=== PATIENT | female | born 1995 ===

== ENCOUNTER 2018-06-30 20:35 | Emergency (ER) | payer OTHER ==
[2018-06-30 21:17] VITALS: RESP 20; O2SAT 98
[2018-06-30] MEDS ORDERED: Sodium Chloride 0.9% 1,000 ML IV ONE (21:25)
--- NOTE | 2018-06-30 21:25 | C.PDOC ---
History Of Present Illness 23 y/o female presents to the ED complaining of nausea, vomiting and abdominal pain for the past 2-3 days. The patient reports she has a PMHx of ovarian cysts. She states her LMP was three months ago. The patient denies any fever or chills. Time Seen by Provider: 06/30/18 21:25 Chief Complaint (Nursing): Abdominal Pain History Per: Patient History/Exam Limitations: no limitations Onset/Duration Of Symptoms: Days Current Symptoms Are (Timing): Still Present Location Of Pain/Discomfort: LLQ Quality Of Discomfort: "Pain" Associated Symptoms: Nausea, Vomiting. denies: Fever, Chills Recent travel outside of the [place]: No Last Menstral Period: 3 months ago Past Medical History Reviewed: Historical Data, Nursing Documentation, Vital Signs Vital Signs: Last Vital Signs Temp 99.6 F 06/30/18 21:10 Pulse 85 06/30/18 21:10 Resp 20 06/30/18 21:10 BP 124/78 06/30/18 21:10 Pulse Ox 98 06/30/18 21:10 - Medical History Other PMH: heart murmur Surgical History: No Surg Hx Family History: States: Unknown Family Hx - Social History Hx Alcohol Use: Yes Hx Substance Use: No Review Of Systems Constitutional: Negative for: Fever, Chills Gastrointestinal: Positive for: Nausea, Vomiting, Abdominal Pain. Negative for: Diarrhea Genitourinary: Negative for: Dysuria, Vaginal Bleeding Physical Exam - Physical Exam Appears: Non-toxic, No Acute Distress Skin: Warm, Dry Head: Normacephalic Eye(s): bilateral: Normal Inspection Oral Mucosa: Moist Neck: Trachea Midline, Supple Chest: Symmetrical Cardiovascular: Rhythm Regular Respiratory: No Rales, No Rhonchi, No Wheezing Gastrointestinal/Abdominal: Soft, Tenderness (mild LLQ tenderness), No Distention, No Guarding, No Rebound Extremity: Bilateral: Normal Color And Temperature Pulses: Left Dorsalis Pedis: Normal, Right Dorsalis Pedis: Normal Neurological/Psych: Oriented x3 Gait: Steady ED Course And Treatment - Laboratory Results Result Diagrams: 06/30/18 21:47 06/30/18 21:47 O2 Sat by Pulse Oximetry: 98 (RA) Pulse Ox Interpretation: Normal Progress Note: Ordered: UA, HCG, CMP, Lipase, CBC, PTT, PT. Medication given in ED: IV Fluids and Zofran Inj Medical Decision Making Medical Decision Making: Upon provider reevaluation patient is feeling better, is medically stable, and requires no further treatment in the ED at this time. Patient will be discharged home with Rx for zofran . Counseling was provided and all questions were answered regarding diagnosis and need for follow up with dr willoughby. There is agreement to discharge plan. Return if symptoms persist or worsen. Disposition Counseled Patient/Family Regarding: Studies Performed, Diagnosis, Need For Followup, Rx Given - Disposition Referrals: Jethro Willoughby MD [Medical Doctor] - Disposition: HOME/ ROUTINE Disposition Time: 21:25 Condition: FAIR Additional Instructions: Please return if symptoms recur Prescriptions: Ondansetron ODT [Zofran ODT] 1 odt PO BID PRN #6 odt PRN Reason: Nausea/Vomiting Instructions: Acute Abdomen (Belly Pain), Adult (DC), Nausea and Vomiting, Adult (DC) Forms: [employer] (Greek) - Clinical Impression Clinical Impression: Abdominal pain, Nausea - PA / REGULATORY LAW SPECIALIST / Resident Statement MD/DO has reviewed & agrees with the documentation as recorded. - Scribe Statement The provider has reviewed the documentation as recorded by the Scribe (Urszula Case) Provider Attestation: All medical record entries made by the Scribe were at my direction and per sonally dictated by me. I have reviewed the chart and agree that the record accurately reflects my personal performance of the history, physical exam, medical decision making, and the department course for this patient. I have also personally directed, reviewed, and agree with the discharge instructions and disposition.
[2018-06-30 21:51] LABS: BASO # 0.1 K/uL (0.0-0.2); BASO % 0.7 % (0.0-2.0); LYMPH # 1.1 K/uL (1.0-4.3); LYMPH % 12.2 % (20.0-40.0); MEAN CELL VOLUME 85.6 fL (81.0-99.0); MEAN CORPUSCULAR HEMOGLOBIN 28.6 pg (27.0-31.0); MEAN CORPUSCULAR HGB CONC 33.4 g/dL (33.0-37.0); MEAN PLATELET VOLUME 6.4 fL (7.2-11.7); MONO # 0.4 K/uL (0.0-0.8); MONO % 4.1 % (0.0-10.0); NEUT # 7.6 K/uL (1.8-7.0); NRBC % 0.2 % (0.0-2.0); RBC 4.56 Mil/uL (3.80-5.20); RED CELL DISTRIBUTION WIDTH 19.4 % (11.5-14.5); WHITE BLOOD COUNT 9.1 K/uL (4.8-10.8)
[2018-06-30 21:52] LABS: SQUAMOUS EPITHIAL 16 /hpf (0-5); URINE BILIRUBIN NEGATIVE (NEGATIVE); URINE BLOOD NEGATIVE (NEGATIVE); URINE CLARITY Hazy (Clear); URINE COLOR Yellow (YELLOW); URINE GLUCOSE (UA) NORMAL (Normal); URINE LEUKOCYTE ESTERASE NEG Leu/uL (Negative); URINE PROTEIN 1+ mg/dL (NEGATIVE); URINE UROBILINOGEN NORMAL mg/dL (0.2-1.0)
[2018-06-30 21:54] LABS: HCG,QUALITATIVE URINE NEGATIVE (NEGATIVE)
[2018-06-30 22:01] LABS: INR 1.2; PROTHROMBIN TIME 12.9 SECONDS (9.7-12.2)
[2018-06-30 22:05] LABS: ALB/GLOB RATIO 1.3 (1.0-2.1); ALBUMIN 4.5 g/dL (3.5-5.0); ALT/SGPT 35 U/L (9-52); AST/SGOT 32 U/L (14-36); BLOOD UREA NITROGEN 8 mg/dL (7-17); CALCIUM 9.6 mg/dl (8.6-10.4); GFR NON-AFRICAN AMERICAN > 60; LIPASE 39 U/L (23-300)
[2018-07-01 02:41] VITALS: BP 120/78; PULSE 81; TEMP 97.6
== END 2018-07-01 02:41 | disposition home or self-care (01) ==
LOC: C.ER 20:35
DX: R10.32 Left lower quadrant pain (principal); R11.0 Nausea
CPT/HCPCS: 80053; 81001; 83690; 84703; 85025; 85610; 85730; 96361; 96374; 99285; J2405; J7030

== ENCOUNTER 2018-10-25 14:02 | Emergency (ER) | payer OTHER ==
[2018-10-25 14:18] VITALS: BMI 33.3
[2018-10-25] MEDS ORDERED: Sodium Chloride 0.9% 1,000 ML IV ONE (15:25)
[2018-10-25 15:29] LABS: SQUAMOUS EPITHIAL 1 /hpf (0-5); URINE BILIRUBIN NEGATIVE (NEGATIVE); URINE BLOOD NEGATIVE (NEGATIVE); URINE CLARITY Clear (Clear); URINE COLOR Yellow (YELLOW); URINE GLUCOSE (UA) NORMAL (Normal); URINE LEUKOCYTE ESTERASE NEG Leu/uL (Negative); URINE PROTEIN NEGATIVE (NEGATIVE); URINE UROBILINOGEN NORMAL mg/dL (0.2-1.0)
[2018-10-25 15:34] LABS: HCG,QUALITATIVE URINE NEGATIVE (NEGATIVE)
[2018-10-25] MEDS ORDERED: Sodium Chloride 0.9% 1,000 ML ONE (15:43)
[2018-10-25 16:11] LABS: BASO % 0.6 % (0.0-2.0); EOS # 0.2 K/uL (0.0-0.7); EOS % 2.2 % (0.0-4.0); HEMOGLOBIN 13.4 g/dL (11.0-16.0); LYMPH # 2.6 K/uL (1.0-4.3); LYMPH % 37.4 % (20.0-40.0); MEAN CELL VOLUME 92.6 fL (81.0-99.0); MEAN CORPUSCULAR HEMOGLOBIN 29.7 pg (27.0-31.0); MEAN CORPUSCULAR HGB CONC 32.1 g/dL (33.0-37.0); MEAN PLATELET VOLUME 7.1 fL (7.2-11.7); MONO # 0.4 K/uL (0.0-0.8); NEUT # 3.8 K/uL (1.8-7.0); NEUT % 53.8 % (50.0-75.0); RBC 4.51 Mil/uL (3.80-5.20); RED CELL DISTRIBUTION WIDTH 14.1 % (11.5-14.5); WHITE BLOOD COUNT 7.1 K/uL (4.8-10.8)
--- NOTE | 2018-10-25 16:20 | C.PDOC ---
History Of Present Illness 23 year old female presents to ED with complaint of total lower abdominal pain for the past 2-3 weeks. Patient admits to nausea, vomiting, fatigue, and headache. Patient has a past history of PCOS for the past few years. She had her ASD repaired at . Patient states that her last menstrual period was from October 07- and noted frequent spotting. Her [employer] is Dr. Rocha follows her closely and gave her a round of Depo- Provera at the beginning of September. Patient has been trying to get , but has failed. She states that her has been experiencing similar symptoms for the past few weeks. She came to the ED in June and was given Zofran with relief. Patient states that she took Zofran, but has no relief this time. Patient denies diarrhea. Time Seen by Provider: 10/25/18 14:11 Chief Complaint (Nursing): Abdominal Pain History Per: Patient History/Exam Limitations: no limitations Onset/Duration Of Symptoms: Other (2-3 weeks) Current Symptoms Are (Timing): Still Present Location Of Pain/Discomfort: Diffuse (total lower abdominal pain ) Quality Of Discomfort: "Pain" Associated Symptoms: Nausea, Vomiting. denies: Diarrhea Past Medical History Reviewed: Historical Data, Nursing Documentation, Vital Signs Vital Signs: Last Vital Signs Temp 98.9 F 10/25/18 14:12 Pulse 76 10/25/18 14:12 Resp 17 10/25/18 14:12 BP 144/87 10/25/18 14:12 Pulse Ox 100 10/25/18 14:12 - Medical History Other PMH: PCOS Other Surgeries: ASD repair. Family History: States: Unknown Family Hx - Social History Hx Alcohol Use: Yes Hx Substance Use: No Review Of Systems Constitutional: Negative for: Fever, Chills, Weakness Cardiovascular: Negative for: Chest Pain, Palpitations Respiratory: Negative for: Cough, Shortness of Breath Gastrointestinal: Positive for: Nausea, Vomiting, Abdominal Pain (total lower abdomen). Negative for: Diarrhea Genitourinary: Negative for: Dysuria, Hematuria Neurological: Positive for: Headache. Negative for: Weakness, Numbness, Dizziness Physical Exam - Physical Exam Appears: Well, Non-toxic, No Acute Distress Skin: Normal Color, Warm, Dry Head: Atraumatic, Normacephalic Eye(s): bilateral: Normal Inspection, PERRL, EOMI Chest: Symmetrical, No Deformity Cardiovascular: Rhythm Regular, No Murmur Respiratory: No Accessory Muscle Use, No Rales, No Rhonchi, No Wheezing Gastrointestinal/Abdominal: Tenderness (suprapubic), No Other (McBurney's point and Pillai's point tenderness) Back: No CVA Tenderness Extremity: Capillary Refill (< 2 seconds) Extremity: Bilateral: Atraumatic, Normal Color And Temperature Pulses: Left Radial: Normal, Right Radial: Normal Neurological/Psych: Oriented x3, Normal Speech, Normal Cognition ED Course And Treatment - Laboratory Results Result Diagrams: 10/25/18 16:05 10/25/18 16:05 Lab Results: Urine Color Yellow (YELLOW) 10/25/18 15:18 Urine Clarity Clear (Clear) 10/25/18 15:18 Urine pH 5.0 (5.0-8.0) 10/25/18 15:18 Ur Specific [place] 1.026 (1.003-1.030) 10/25/18 15:18 Urine Protein Negative mg/dL (NEGATIVE) 10/25/18 15:18 Urine Glucose (UA) Normal mg/dL (Normal) 10/25/18 15:18 Urine Ketones Negative mg/dL (NEGATIVE) 10/25/18 15:18 Urine Blood Negative (NEGATIVE) 10/25/18 15:18 Urine Nitrate Negative (NEGATIVE) 10/25/18 15:18 Urine Bilirubin Negative (NEGATIVE) 10/25/18 15:18 Urine Urobilinogen Normal mg/dL (0.2-1.0) 10/25/18 15:18 Ur Leukocyte Esterase Neg Luiza/uL (Negative) 10/25/18 15:18 Urine WBC (Auto) < 1 /hpf (0-5) 10/25/18 15:18 Urine RBC (Auto) < 1 /hpf (0-3) 10/25/18 15:18 Ur Squamous Epith Cells 1 /hpf (0-5) 10/25/18 15:18 Urine HCG, Qual Negative (NEGATIVE) 10/25/18 15:18 Urine HCG, Qual Negative (NEGATIVE) 10/25/18 15:18 O2 Sat by Pulse Oximetry: 100 (RA) Progress Note: Labs ordered with UA and Urine for patient. NaCl IV, Toradol IVP, Tylenol PO, and Zofran IVP given to patient. Upon reassesment, patient is resting comfortably, in no distress, and is stable for discharge. Patient is advised to take medications as directed. Patient is advised to follow up with PMD with in 1-2 days. Patient is advised to return to ED if symptoms per sist or worsen. Disposition Counseled Patient/Family Regarding: Studies Performed, Diagnosis, Need For Followup, Rx Given - Disposition Referrals: Nestor Lemos MD [Staff Provider] - Disposition: HOME/ ROUTINE Disposition Time: 16:40 Condition: STABLE Additional Instructions: FOLLOW UP WITH YOUR DOCTOR IN 1-2 DAYS USE MEDICATIONS NEEDED RETURN TO ER IF SYMPTOMS WORSEN Prescriptions: Naproxen 375 mg PO BID PRN #20 tablet PRN Reason: pain Ondansetron ODT [Zofran ODT] 1 odt PO BID PRN #15 odt PRN Reason: Nausea/Vomiting Instructions: Nausea and Vomiting, Adult (DC) Forms: [employer] (Austrian) Print Language: STATELESS - Clinical Impression Clinical Impression: Vomiting, Nausea, PCOS (polycystic ovarian syndrome) - Scribe Statement The provider has reviewed the documentation as recorded by the Scribe (Kesha Joyce) All medical record entries made by the Scribe were at my direction and personally dictated by me. I have reviewed the chart and agree that the record accurately reflects my personal performance of the history, physical exam, medical decision making, and the department course for this patient. I have also personally directed, reviewed, and agree with the discharge instructions and disposition.
[2018-10-25 16:28] LABS: ALB/GLOB RATIO 1.5 (1.0-2.1); ALBUMIN 4.5 g/dL (3.5-5.0); ALT/SGPT 20 U/L (9-52); AST/SGOT 25 U/L (14-36); BLOOD UREA NITROGEN 13 mg/dL (7-17); CALCIUM 9.2 mg/dl (8.6-10.4); GFR NON-AFRICAN AMERICAN > 60; LIPASE 155 U/L (23-300)
[2018-10-25 17:17] VITALS: TEMP 98.5
[2018-10-25 17:36] VITALS: BP 115/70; PULSE 62; RESP 18; O2SAT 100
== END 2018-10-25 17:36 | disposition home or self-care (01) ==
LOC: C.ER 14:02
DX: E28.2 Polycystic ovarian syndrome (principal); R11.2 Nausea with vomiting, unspecified
CPT/HCPCS: 80053; 81001; 83690; 84703; 85025; 96361; 96374; 96375; 99284; J1885; J2270; J2405; J7030